=== PATIENT | female | born 1960 | race Caucasian/White ===

== ENCOUNTER → 2017-03-13 | Outpatient (CLI) | payer OTHER ==
[~2017-03-13] MED LIST: CIPR500 PO; DICY20 PO; HYDACE5 PO; METR500 PO; NAPR220 PO; NAPR500 PO
[2017-03-15 12:17] LABS: HPV Genotype 16 Not Detected (NOTDET); HPV Genotype 18 Not Detected (NOTDET)
[2017-03-21 10:43] LABS: HPV High Risk Other Not Detected (NOTDET)
== END ==
LOC: OLS 14:22
PROVIDERS: Nurse Practitioner Women's Health
DX: Z12.4 Encounter for screening for malignant neoplasm of cervix (principal); Z91.89 Other specified personal risk factors, not elsewhere classified
CPT/HCPCS: 87624; G0123